=== PATIENT | male | born 1990 | race Caucasian/White ===

== ENCOUNTER 2017-01-15 18:10 | Emergency (ER) | payer SELFPAY ==
[~2017-01-15] VITALS: Ht 185.4 cm; Wt 118.3 kg
[2017-01-15 18:13] VITALS: BP 146/91
== END 2017-01-15 18:39 | disposition left against medical advice (07) ==
LOC: ED 18:33
DX: M79.674 Pain in right toe(s) (principal)
CPT/HCPCS: 99281